=== PATIENT | male | born 1960 | race African-American/Black ===

== ENCOUNTER 2017-04-24 22:15 | Emergency (ER) | payer OTHER ==
[2017-04-24] MEDS ORDERED: SULFAMETHOXAZOLE/TRIMETHOPRIM 1 EACH TABLET PO ONE (22:40)
--- NOTE | 2017-04-24 22:50 | ED Physician Documentation ---
General Adult - HISTORIAN Historian: patient - HPI Stated Complaint: sore on left leg Chief Complaint: General Adult Additional Information: Sore left lower leg since yesterday. HX skin abscess, NIDDM. Also has new rash L hand. Stayed in motel last night.Cough for 5 days productive of green mucus. No fever or diaphoresis. Smoker. Had bronchitis as a child. Had flu shot this year. - ROS CONST: denies: fever - PAST HX Past History: other (NIDDM) - SOCIAL HX Smoking History: cigarettes - FAMILY HX Family History: No - REVIEWED ASSESSMENTS Nursing Assessment Reviewed: Yes Vitals Reviewed: Yes Progress - Progress Progress: FSG 463. Will also give IM Rocephin. ED Results Lab/Radiology - Orders Orders: ED Orders Category Date Time Status INFLUENZA A&B Stat Lab 04/24/17 Uncollected Sulfamethoxazole/Trimethoprim [Bactrim Ds] Med 04/24/17 22:40 Once 2 each PO NOW ONE General Adult Physical Exam - PHYSICAL EXAM GENERAL APPEARANCE: no distress EENT: eye inspection normal, pharynx normal, no signs of dehydration NECK: normal inspection, supple, other (non tender) RESPIRATORY: no resp distress, breath sounds normal CVS: reg rate & rhythm, heart sounds normal BACK: normal inspection SKIN: warm/dry, normal color, other (except l hand with trail of pink and scabbed macules, 1-2 mm diameter. L lower leg with soft swelling proximal anterolateral area, 10x 12 cm diameter, with roche white center, 3 mm diam.; lesser erythema 3-4 cm wide to just proxiaml to left ankle. No fluctuance or induration.) EXTREMITIES: edema (1+ ankles) NEURO: oriented X3, CN's nml as tested, motor nml, sensation nml, cognition normal Discharge Clincal Impression: Scabies Cellulitis Qualifiers: Site of cellulitis: extremity Site of cellulitis of extremity: lower extremity Laterality: left Qualified Code(s): L03.116 - Cellulitis of left lower limb Referrals: Primary Doctor,No [Primary Care Provider] - 2 Days Condition: Good Disposition: 01 HOME, SELF-CARE Decision to Admit: NO Decision Time: 22:55
[2017-04-24] MEDS ORDERED: cefTRIAXone SODIUM 1 GM VIAL IM ONE (22:58)
[2017-04-24] MEDS ORDERED: Lidocaine 1% 5ml(IM or SUTURE)(PAIN CLINIC) IJ ONE (22:58)
[2017-04-24 23:29] VITALS: BP 162/75
== END 2017-04-24 23:22 | disposition home or self-care (01) ==
LOC: ED 22:15
DX: L03.116 Cellulitis of left lower limb (principal)
CPT/HCPCS: 87400; A9270; J0696; 96372; 99282